=== PATIENT | female | born 1940 | race Caucasian/White ===

== ENCOUNTER 2016-10-15 05:31 | Day surgery (SDC) | payer MEDICARE, OTHER ==
--- NOTE | ~2016-10-15 | EGD ---
EGD REPORT [facility] [address] [address] NAME: JEFFERY MAYS : [birth year] STATUS : REG [facility]#: [id number] AGE: 75 ADM/REG DATE : 10/15/16 MR#: [id number] REPORT SERV DATE: 10/15/16 DICTATED BY: DATE: REPORT STATUS : Draft TRANSCRIBED BY: [employer] DATE: 10/15/16 [facility] Center Patient Name: Jeffery Mays Date of : 1940 Attending MD: ALLISON ART MD Procedure Date No Time: 10/15/2016 Procedure: Colonoscopy Indications: High risk colon cancer surveillance: Personal history of non-advanced adenoma Referring MD: NILS MELENDEZ Medicines: Monitored Anesthesia Care Complications: No immediate complications. Procedure: Pre-Anesthesia Assessment: - ASA Grade Assessment: II - A patient with mild systemic disease. After I obtained informed consent, the scope was passed under direct vision. Throughout the procedure, the patient's blood pressure, pulse, and oxygen saturations were monitored continuously. The PCF [id number] was introduced through the anus and advanced to the cecum, identified by appendiceal orifice and ileocecal valve. The colonoscopy was performed without difficulty. The patient tolerated the procedure well. The quality of the bowel preparation was good. Findings: The perianal and digital rectal examinations were normal except grade I hemorrhoids. Multiple small and large-mouthed diverticula were found in the entire colon. No other significant abnormalities were identified in a careful examination of the remainder of the colon. There is no endoscopic evidence of inflammation, mass, polyps, ulcerations or angioectasia in the entire colon. No additional abnormalities were found on retroflexion. Impression: - Diverticulosis in the entire examined colon. Recommendation: - Patient has a contact number available for emergencies. The signs and symptoms of potential delayed complications were discussed with the patient. Return to normal activities tomorrow. Written discharge instructions were provided to the patient. - Return to previous diet. - Discharge patient to home. EGD REPORT [facility] [address] [place] [address] NAME: JEFFERY MAYS : [birth year] STATUS : REG [facility]#: [id number] AGE: 75 ADM/REG DATE : 10/15/16 MR#: [id number] REPORT SERV DATE: 10/15/16 DICTATED BY: DATE: REPORT STATUS : Draft TRANSCRIBED BY: [employer] DATE: 10/15/16 - Continue present medications. - Repeat colonoscopy in 5 years for surveillance. Procedure Code(s): --- Professional --- G0105, Colorectal cancer screening; colonoscopy on individual at high risk Diagnosis Code(s): --- Professional --- K57.30, Diverticulosis of large intestine without perforation or abscess without bleeding Z86.010, Personal history of colonic polyps CPT copyright 2013 [employer]. All rights reserved. The codes documented in this report are preliminary and upon prenatal genetic counselor review may be revised to meet current compliance requirements. ALLISON ART MD 10/15/2016 7:42 AM This report has been signed electronically. Number of Addenda: 0 Note Initiated On: 10/15/2016 7:01 AM Scope Withdrawal Time 0 hours 7 minutes 48 seconds [address] [place] [address]
--- NOTE | ~2016-10-15 | EGD ---
EGD REPORT [facility] [address] [address] NAME: JEFFERY MAYS : [birth year] STATUS : REG [facility]#: [id number] AGE: 75 ADM/REG DATE : 10/15/16 MR#: [id number] REPORT SERV DATE: 10/15/16 DICTATED BY: DATE: REPORT STATUS : Draft TRANSCRIBED BY: [employer] DATE: 10/15/16 Endoscopy Center Patient Name: Jeffery Mays Date of : 1940 Attending MD: ALLISON ART MD Procedure Date No Time: 10/15/2016 Procedure: Upper GI endoscopy Referring MD: NILS MELENDEZ Medicines: Monitored Anesthesia Care Complications: No immediate complications. Procedure: Pre-Anesthesia Assessment: - ASA Grade Assessment: II - A patient with mild systemic disease. After obtaining informed consent, the endoscope was passed under direct vision. Throughout the procedure, the patient's blood pressure, pulse, and oxygen saturations were monitored continuously. The GIF H190 [id number] was introduced through the mouth, and advanced to the third part of duodenum. The upper GI endoscopy was accomplished without difficulty. The patient tolerated the procedure well. Findings: The lumen of the middle third of the esophagus and lower third of the esophagus was moderately dilated. Patchy moderate erythema was found in the lower third of the esophagus. Biopsies were taken with a cold forceps for histology. Evidence of a Toupet procedure was found at the gastroesophageal junction. The wrap appeared loose. This was traversed. There is no endoscopic evidence of stenosis, ulcerations or mass in the entire esophagus. The entire examined stomach was normal. There is no endoscopic evidence of inflammation, mucosal abnormalities, ulceration or varices in the entire examined stomach. The examined duodenum was normal. There is no endoscopic evidence of inflammation, mucosal abnormalities or ulceration in the entire examined duodenum. The cardia and gastric fundus were normal on retroflexion. Impression: - Dilation in the middle third of the esophagus and in the lower third of the esophagus. - Erythema in the lower third of the esophagus. Biopsied. - A previous Toupet procedure was found. The wrap appears loose. - Normal stomach. EGD REPORT [address] [place]. [address] NAME: JEFFERY MAYS : 40 STATUS : REG [facility] PAT#: [id number] AGE: 75 ADM/REG DATE : 10/15/16 MR#: [id number] REPORT SERV DATE: 10/15/16 DICTATED BY: DATE: REPORT STATUS : Draft TRANSCRIBED BY: [employer] DATE: 10/15/16 - Normal examined duodenum. Recommendation: - Patient has a contact number available for emergencies. The signs and symptoms of potential delayed complications were discussed with the patient. Return to normal activities tomorrow. Written discharge instructions were provided to the patient. - Discharge patient to home. - Return to previous diet. - Continue present medications. - Await pathology results. - Use Carafate as slurry 4 times daily for 2 weeks. Procedure Code(s): --- Professional --- 52286, Esophagogastroduodenoscopy, flexible, transoral; with biopsy, single or multiple Diagnosis Code(s): --- Professional --- K22.8, Other specified diseases of esophagus K22.9, Disease of esophagus, unspecified Z98.89, Other specified postprocedural states CPT copyright 2013 [employer]. All rights reserved. The codes documented in this report are preliminary and upon certified medical coder review may be revised to meet current compliance requirements. ALLISON ART MD 10/15/2016 7:40 AM This report has been signed electronically. Number of Addenda: 0 Note Initiated On: 10/15/2016 7:02 AM Scope Withdrawal Time 0 hours 0 minutes 0 seconds [id number] [place] [id number]
[~2016-10-15 05:31] MED LIST: ACETUDL PO; C5 PO; CEPACOL ULTR1 LOZ MT; GAVISCON6; LEVSINTAB PO; LEVSINTAB SL; MAALOX PO; MYLUD PO; PCET PO; PEP20 PO; PEPCID40 MG OR; PEPTO BISMOL LIQ1 ML PO; PRILOSEC40 MG PO; SUCR PO; T3 PO; X5 PO
== END 2016-10-15 23:59 | disposition home or self-care (01) ==
LOC: DMU 05:31
PROVIDERS: Internal Medicine Gastroenterology
PROC: 0DJD8ZZ Inspection of Lower Intestinal Tract, Via Natural or Artificial Opening Endoscopic (ICD-10-PCS; principal; 2016-10-15 08:00)
PROC: 0DB38ZX Excision of Lower Esophagus, Via Natural or Artificial Opening Endoscopic, Diagnostic (ICD-10-PCS; 2016-10-15 08:00)
DX: Z12.11 Encounter for screening for malignant neoplasm of colon (principal); K57.30 Diverticulosis of large intestine without perforation or abscess without bleeding; K22.8 Other specified diseases of esophagus; K22.0 Achalasia of cardia; K21.9 Gastro-esophageal reflux disease without esophagitis; Z88.0 Allergy status to penicillin; Z86.010 Personal history of colon polyps; Z98.890 Other specified postprocedural states; Z88.5 Allergy status to narcotic agent; Z79.899 Other long term (current) drug therapy
CPT/HCPCS: 43239; G0105; 88305; A9270-GY